=== PATIENT | female | born 1950 | race Caucasian/White ===

== ENCOUNTER → 2021-07-16 | Outpatient (CLI) | payer MEDICARE, OTHER | LOC: KOH-I 11:16 | DX: M47.26 Other spondylosis with radiculopathy, lumbar region (principal) | CPT/HCPCS: 72110 ==

== ENCOUNTER → 2021-08-09 | Outpatient (CLI) | payer MEDICARE, OTHER | LOC: KOH-I 08-01 16:00 | DX: M51.16 Intervertebral disc disorders with radiculopathy, lumbar region (principal); M47.26 Other spondylosis with radiculopathy, lumbar region; M48.061 Spinal stenosis, lumbar region without neurogenic claudication; M48.07 Spinal stenosis, lumbosacral region | CPT/HCPCS: 72148 ==

== ENCOUNTER → 2022-01-06 | Outpatient (CLI) | payer MEDICARE, OTHER ==
[~2022-01-06] MED LIST: ALL DAY ALLERGY10 M2 PO; FLUTICASONE SPRAY; GABAPENTIN400 MG PO; HYDROCODON-ACE1 EAC4 PO; IBU400 MG PO; LACTULOSE10 GM/151 PO; LASIX20 MG PO; LISINOPRIL5 MG PO; LOW DOSE ASPIRI81 MG PO; MELATONIN5 M2 PO; OMEPRAZOLE40 MG PO; PLETAL 100 MG100 MG PO; PROLIA INJ60 MG/1 ML INJ; PROVENTIL HFA6.7 GM INH; STOOL SOFTENER100 MG PO; SYNTHROID100 MCG PO; ZOCOR40 MG PO
[2022-01-06 12:06] LABS: HEMOGLOBIN 14.1 gm/dl (12.3-15.3); RED BLOOD COUNT 4.72 M/UL (4.00-5.10)
[2022-01-06 12:45] LABS: BUN/CREATININE RATIO 24 (0-10)
== END ==
LOC: OPSV2 10:00
PROVIDERS: Orthopaedic Surgery
DX: Z01.818 Encounter for other preprocedural examination (principal); R94.31 Abnormal electrocardiogram [ECG] [EKG]; S52.572A Other intraarticular fracture of lower end of left radius, initial encounter for closed fracture; X58.XXXA Exposure to other specified factors, initial encounter
CPT/HCPCS: 36415; 80048; 85027; 93005